=== PATIENT | male | born 1965 | race African-American/Black ===

== ENCOUNTER 2025-02-04 14:31 | Inpatient (IN) | payer MEDICARE, OTHER ==
[~2025-02-04] VITALS: Ht 154.9 cm; Wt 64.4 kg
[~2025-02-04 14:31] MED LIST: KEPP500 PO; LIP40 PO
[2025-02-04] MEDS: ASPIRIN 325MG EC TABLET PO ONE (15:14)
[2025-02-04] MEDS: NITROGLYCERIN 0.4MG TABLET SL SL ONE (15:14)
[2025-02-04] MEDS: LABETALOL 5MG/ML 4ML INJ IV ONE (16:00)
[2025-02-04 16:07] LABS: BASOPHILS % 1.5 % (0.0-2.0); EOSINOPHILS % 3.6 % (0.0-5.0); HEMATOCRIT. 28.4 % (42.0-52.0); HEMOGLOBIN. 9.4 g/dL (14.0-18.0); LYMPHOCYTES % 15.2 % (20.0-50.0); MEAN PLATELET VOLUME 7.7 fl (7.4-10.4); MONOCYTES % 14.7 % (2.0-8.0); NEUTROPHILS % 65.0 % (40.0-76.0); PLATELET 302 x1000/uL (130-400); RED BLOOD CELL COUNT 3.46 mill/uL (4.7-6.1); RED CELL DISTRIBUTION WIDTH 20.4 % (11.6-14.6)
[2025-02-04 16:21] LABS: UREA NITROGEN BLOOD 44 mg/dL (9-23)
[2025-02-04 16:23] LABS: ASPARTATE AMINOTRANSFERASE 27 IU/L (<34); BILIRUBIN DIRECT 0.1 mg/dL (<=3.0); BILIRUBIN TOTAL 0.4 mg/dL (0.1-1.0); INR 1.0
[2025-02-04 16:24] LABS: PROTEIN TOTAL 7.5 g/dL (6.0-8.3)
[2025-02-04 16:32] LABS: CREATININE 8.8 mg/dL (0.6-1.3); TROPONIN I HIGH SENSITIVITY 58 ng/L (3.0-53)
[2025-02-04 21:48] LABS: TROPONIN I HIGH SENSITIVITY 68 ng/L (3.0-53)
[2025-02-04] MEDS ORDERED: HYDRALAZINE 20MG/ML VIAL IV PRN (23:15)
[2025-02-05 04:00] VITALS: BP 147/59; PULSE 74; RESP 17; TEMP 36.4; O2SAT 99
[2025-02-05 05:00] VITALS: BP 156/68; PULSE 76; RESP 18; TEMP 35.9176
[2025-02-05 08:00] VITALS: BP 136/47; PULSE 70; RESP 17; TEMP 36.3; O2SAT 99
[2025-02-05] MEDS ORDERED: DOCUSATE SODIUM 100MG CAPSULE PO PRN (08:45)
[2025-02-05] MEDS ORDERED: ONDANSETRON HCL 4MG/2ML INJ IV PRN (08:45)
[2025-02-05] MEDS ORDERED: CLONIDINE 0.1MG TABLET PO PRN (08:45)
[2025-02-05] MEDS ORDERED: IPRATROPIUM/ALBUTEROL 0.5-3(2.5)MG/3ML NEB HHN PRN (08:45)
[2025-02-05] MEDS ORDERED: ACETAMINOPHEN 325MG TABLET PO PRN ×2 (08:45)
[2025-02-05] MEDS ORDERED: DEXTROSE 50% WATER 50ML SYRINGE IV PRN (09:30)
[2025-02-05] MEDS: FUROSEMIDE 40MG/4ML VIAL IVP SCH (10:00)
[2025-02-05] MEDS ORDERED: NITROGLYCERIN 0.4MG TABLET SL SL PRN (10:15)
[2025-02-05] MEDS: ASPIRIN 81MG TABLET PO SCH (10:16)
[2025-02-05 12:00] VITALS: BP 113/58; PULSE 69; RESP 14; TEMP 36.3; O2SAT 95
[2025-02-05] MEDS: BLOOD SUGAR DIAGNOSTIC STRIP TEST SCH (12:10)
[2025-02-05] MEDS: INSULIN LISPRO 100 UNITS/ML SUBCUT SCH (12:40)
[2025-02-05] MEDS: SEVELAMER CARBONATE 800 MG TABLET PO SCH (13:13)
[2025-02-05] MEDS: ENOXAPARIN 80MG/0.8ML SYR SUBCUT SCH (14:00)
[2025-02-05 16:00] VITALS: BP 150/57; PULSE 70; RESP 20; TEMP 36.6; O2SAT 100
[2025-02-05 20:00] VITALS: BP 165/41; PULSE 78; RESP 20; TEMP 37; O2SAT 97
[2025-02-05] MEDS: LEVETIRACETAM 500MG/5ML CUP PO SCH (21:00)
[2025-02-05] MEDS ORDERED: ENOXAPARIN 30MG/0.3ML SYR SUBCUT SCH (21:00)
[2025-02-05] MEDS: ATORVASTATIN CALCIUM 40MG TABLET PO SCH (21:00)
[2025-02-06] VITALS (11 sets, daily range): BP systolic 119–172; BP diastolic 33–77; PULSE 64–78; RESP 16–20; TEMP 36.2–37; O2SAT 97–99
[2025-02-06] MEDS: LOSARTAN 50 MG TABLET PO SCH (09:47)
[2025-02-06] MEDS: FOLIC ACID/VITAMIN B COMP W-C TABLET PO SCH (09:54)
[2025-02-06 12:20] LABS: UREA NITROGEN BLOOD 75.0 mg/dL (9-23)
[2025-02-06 12:26] LABS: T4 FREE 1.12 ng/dL (0.89-1.76)
[2025-02-06 12:28] LABS: HEMATOCRIT. 24.0 % (42.0-52.0); HEMOGLOBIN. 7.8 g/dL (14.0-18.0); MEAN PLATELET VOLUME 7.6 fl (7.4-10.4); PLATELET 261 x1000/uL (130-400); RED BLOOD CELL COUNT 2.91 mill/uL (4.7-6.1); RED CELL DISTRIBUTION WIDTH 20.4 % (11.6-14.6)
[2025-02-06 12:58] LABS: CREATININE 13.2 mg/dL (0.6-1.3)
[2025-02-06 13:12] LABS: HEPATITIS C AB NON REACTIVE (Neg) (Negative)
[2025-02-06] MEDS ORDERED: LEVETIRACETAM 500MG TABLET PO SCH (21:00)
[2025-02-06] MEDS: EPOETIN ALFA-EPBX 4,000 UNIT/ML VIAL SUBCUT SCH (21:40)
[2025-02-06] MEDS: ATORVASTATIN CALCIUM 40MG TABLET PO SCH (21:41)
[2025-02-07] VITALS: BP 134/44; PULSE 67; RESP 18; TEMP 36.4; O2SAT 98
[2025-02-07] MEDS: GUAIFENESIN 200MG/10ML SUGAR FREE UDC PO PRN (02:47)
[2025-02-07 04:00] VITALS: BP 133/38; PULSE 68; RESP 18; TEMP 36.3; O2SAT 99
[2025-02-07 07:44] LABS: EOSINOPHILS % MANUAL 7.0 % (0.0-5.0); LYMPHOCYTES % MANUAL 17.0 % (20.0-50.0); MONOCYTES % MANUAL 15.0 % (2.0-8.0); NEUTROPHILS % MANUAL 61.0 % (45.0-75.0)
[2025-02-07 07:45] LABS: PLATELET ESTIMATE NORMAL
[2025-02-07 08:00] VITALS: BP 92/68; PULSE 64; RESP 18; TEMP 36.6; O2SAT 96
[2025-02-07 12:00] VITALS: BP 157/50; PULSE 68; RESP 18; TEMP 36.5; O2SAT 99
[2025-02-07 16:00] VITALS: BP 175/54; PULSE 65; RESP 18; TEMP 36.5; O2SAT 100
[2025-02-07 20:00] VITALS: BP 106/78; PULSE 81; RESP 17; TEMP 36.4; O2SAT 99
[2025-02-08] VITALS (8 sets, daily range): BP systolic 112–151; BP diastolic 44–75; PULSE 71–103; RESP 16–20; TEMP 36.3–36.8; O2SAT 97–100
[2025-02-08 15:14] LABS: *AMPHETAMINES SCREEN URINE NEGATIVE (NEGATIVE); *BARBITURATES SCREEN URINE NEGATIVE (NEGATIVE); *COCAINE SCREEN URINE NEGATIVE (NEGATIVE)
[2025-02-08 15:15] LABS: *BENZODIAZEPINES SCREEN URINE NEGATIVE (NEGATIVE); CANNABINOID URINE SCREEN NEGATIVE (NEGATIVE); ECSTASY MDMA SCREEN URINE NEGATIVE (NEGATIVE); METHADONE URINE SCREEN NEGATIVE (NEGATIVE); OPIATES URINE SCREEN NEGATIVE (NEGATIVE); PHENCYCLIDINE URINE SCREEN NEGATIVE (NEGATIVE)
[2025-02-08] MEDS ORDERED: HYDROCODONE/ACETAMINOPHEN 10/325MG TABLET PO PRN (20:45)
[2025-02-08] MEDS ORDERED: DIAZEPAM 5 MG TABLET PO PRN (20:45)
[2025-02-09] VITALS (16 sets, daily range): BP systolic 128–174; BP diastolic 35–66; PULSE 65–80; RESP 16–20; TEMP 36.4–36.8; O2SAT 95–100
[2025-02-09 11:40] LABS: BASOPHILS % 1.5 % (0.0-2.0); EOSINOPHILS % 5.9 % (0.0-5.0); HEMATOCRIT. 25.5 % (42.0-52.0); HEMOGLOBIN. 8.5 g/dL (14.0-18.0); LYMPHOCYTES % 15.5 % (20.0-50.0); MEAN PLATELET VOLUME 7.9 fl (7.4-10.4); MONOCYTES % 12.8 % (2.0-8.0); NEUTROPHILS % 64.3 % (40.0-76.0); PLATELET 280 x1000/uL (130-400); RED BLOOD CELL COUNT 3.10 mill/uL (4.7-6.1); RED CELL DISTRIBUTION WIDTH 20.6 % (11.6-14.6)
[2025-02-09 11:54] LABS: UREA NITROGEN BLOOD 79.0 mg/dL (9-23)
[2025-02-09 11:55] LABS: CREATININE 13.6 mg/dL (0.6-1.3)
[2025-02-09] MEDS ORDERED: HEPARIN 1000 UNITS/ML 10ML ONE (13:23)
[2025-02-09] MEDS ORDERED: IODIXANOL 320MG/ML 100 ML BOTTLE IV ONE ×2 (13:23→14:31)
[2025-02-09] MEDS ORDERED: VERAPAMIL HCL 2.5 MG/1 ML 2ML VIAL IV ONE (13:23)
[2025-02-09] MEDS ORDERED: LIDOCAINE HCL 1% 20ML VIAL ONE (13:23)
[2025-02-09] MEDS ORDERED: DIPHENHYDRAMINE 50MG/ML VIAL ONE (13:45)
[2025-02-09] MEDS ORDERED: FENTANYL CITRATE/PF 50MCG/ML 2ML VIAL ONE (13:46)
[2025-02-09] MEDS ORDERED: MIDAZOLAM HCL 2 MG/2 ML VIAL ONE (13:46)
[2025-02-09] MEDS ORDERED: ATROPINE SULFATE 1MG/10ML SYR IV PRN (15:00)
[2025-02-09] MEDS: ENOXAPARIN 30MG/0.3ML SYR SUBCUT SCH (21:36)
[2025-02-10] VITALS: BP 145/66; PULSE 80; RESP 20; TEMP 36.7; O2SAT 98
[2025-02-10 04:00] VITALS: BP 140/64; PULSE 74; RESP 20; TEMP 36.9; O2SAT 98
[2025-02-10 08:00] VITALS: BP 116/51; PULSE 73; RESP 18; TEMP 36.7; O2SAT 98
[2025-02-10 12:00] VITALS: BP 117/41; PULSE 68; RESP 18; TEMP 36.1; O2SAT 99
[2025-02-10 16:00] VITALS: BP 136/43; PULSE 69; RESP 18; TEMP 36.1; O2SAT 97
[2025-02-10 20:00] VITALS: BP 127/29; PULSE 73; RESP 18; TEMP 36.6; O2SAT 99
[2025-02-11] VITALS (15 sets, daily range): BP systolic 126–203; BP diastolic 41–77; PULSE 64–79; RESP 17–21; TEMP 36.4–37.1; O2SAT 94–100
[2025-02-11 18:06] LABS: BASOPHILS % 1.3 % (0.0-2.0); EOSINOPHILS % 7.4 % (0.0-5.0); HEMATOCRIT. 23.8 % (42.0-52.0); HEMOGLOBIN. 8.0 g/dL (14.0-18.0); LYMPHOCYTES % 12.7 % (20.0-50.0); MEAN PLATELET VOLUME 8.0 fl (7.4-10.4); MONOCYTES % 13.9 % (2.0-8.0); NEUTROPHILS % 64.7 % (40.0-76.0); PLATELET 271 x1000/uL (130-400); RED BLOOD CELL COUNT 2.86 mill/uL (4.7-6.1); RED CELL DISTRIBUTION WIDTH 19.8 % (11.6-14.6)
[2025-02-11 18:20] LABS: UREA NITROGEN BLOOD 75 mg/dL (9-23)
[2025-02-11 18:21] LABS: ASPARTATE AMINOTRANSFERASE 16 IU/L (<34)
[2025-02-11 18:22] LABS: BILIRUBIN DIRECT < 0.1 mg/dL (<=3.0); BILIRUBIN TOTAL < 0.2 mg/dL (0.1-1.0); INR 1.1; PHOSPHORUS 6.1 mg/dL (2.5-4.9); PROTEIN TOTAL 6.5 g/dL (6.0-8.3)
[2025-02-11 18:27] LABS: CREATININE 12.3 mg/dL (0.6-1.3)
[2025-02-12] VITALS: BP 114/26; PULSE 73; RESP 18; TEMP 37; O2SAT 96
[2025-02-12 04:00] VITALS: BP 106/35; PULSE 75; RESP 16; TEMP 36.8; O2SAT 96
[2025-02-12 07:57] VITALS: BP 110/46; PULSE 72; RESP 18; TEMP 35.9; O2SAT 99
[2025-02-12] MEDS ORDERED: KEPP500 MT (08:55)
[2025-02-12] MEDS ORDERED: FURO-151 MT (08:55)
[2025-02-12] MEDS ORDERED: LIP40 MT (08:55)
[2025-02-12] MEDS ORDERED: LOSA50TA41 MT (08:55)
[2025-02-12] MEDS ORDERED: ASPI-1497 MT (08:55)
[2025-02-12 10:20] VITALS: BP 110/56; PULSE 72; TEMP 96.6; O2SAT 99
== END 2025-02-12 11:00 | disposition home or self-care (01) | DRG 280 ==
LOC: ER 14:31 → 8WST 21:03 → EDBEDREQ 21:49 → EDBEDREQTM 21:49 → ENRESERV 22:17
PROVIDERS: ADMIT Internal Medicine; ATTEND Internal Medicine
PROC: 5A1D70Z Performance of Urinary Filtration, Intermittent, Less than 6 Hours Per Day (ICD-10-PCS; principal; 2025-02-06)
PROC: 5A1D70Z Performance of Urinary Filtration, Intermittent, Less than 6 Hours Per Day (ICD-10-PCS; 2025-02-09)
PROC: 4A023N7 Measurement of Cardiac Sampling and Pressure, Left Heart, Percutaneous Approach (ICD-10-PCS; 2025-02-09)
PROC: B212YZZ Fluoroscopy of Single Coronary Artery Bypass Graft using Other Contrast (ICD-10-PCS; 2025-02-09)
PROC: B218YZZ Fluoroscopy of Left Internal Mammary Bypass Graft using Other Contrast (ICD-10-PCS; 2025-02-09)
PROC: B211YZZ Fluoroscopy of Multiple Coronary Arteries using Other Contrast (ICD-10-PCS; 2025-02-09)
PROC: B41FYZZ Fluoroscopy of Right Lower Extremity Arteries using Other Contrast (ICD-10-PCS; 2025-02-09)
PROC: B41CYZZ Fluoroscopy of Pelvic Arteries using Other Contrast (ICD-10-PCS; 2025-02-09)
PROC: 5A1D70Z Performance of Urinary Filtration, Intermittent, Less than 6 Hours Per Day (ICD-10-PCS; 2025-02-11)
DX: I21.4 Non-ST elevation (NSTEMI) myocardial infarction (principal); N18.6 End stage renal disease; I13.2 Hypertensive heart and chronic kidney disease with heart failure and with stage 5 chronic kidney disease, or end stage renal disease; I16.1 Hypertensive emergency; D64.9 Anemia, unspecified; Z99.2 Dependence on renal dialysis; E11.22 Type 2 diabetes mellitus with diabetic chronic kidney disease; I50.9 Heart failure, unspecified; Z95.1 Presence of aortocoronary bypass graft; Z95.5 Presence of coronary angioplasty implant and graft; G40.909 Epilepsy, unspecified, not intractable, without status epilepticus; Z86.73 Personal history of transient ischemic attack (TIA), and cerebral infarction without residual deficits; E78.00 Pure hypercholesterolemia, unspecified; I25.10 Atherosclerotic heart disease of native coronary artery without angina pectoris; E87.5 Hyperkalemia
CPT/HCPCS: 36415; 71045; 71275; 80048; 80076; 80305; 82270; 82962; 83735; 83880; 84100; 84439; 84443; 84484; 85025; 85379; 86705; 87340; 90935; 93005; 93306; 93459; 93970; 94070; 94640; 94664; 97162; 99291; A4606; C1769; C1887; C1893; J0885; J1200; J1644; J1650; J1815; J1938; J2003; J2250; J3010; J3490; Q9967